=== PATIENT | female | born 1935 | race Caucasian/White ===

== ENCOUNTER 2022-07-16 13:54 | Inpatient (IN) | payer BC, MEDICARE ==
[~2022-07-16] VITALS: Ht 154.9 cm; Wt 97.5 kg
[~2022-07-16 13:54] MED LIST: ALEN70TA3 PO; CYCL30DR OP; HYDR-3326 PO; LEVO150T PO; PANT40TA49 PO; SUCR1TAB PO
[2022-07-16] MEDS ORDERED: IV NORMAL SALINE 1000 ML BAG IV ONE ×2 (14:45→18:30)
[2022-07-16] MEDS ORDERED: DENO60DI SUBCUT (15:10)
[2022-07-16] MEDS ORDERED: LEVO112T5 PO (15:10)
[2022-07-16] MEDS ORDERED: DOCU-141 PO (15:10)
[2022-07-16] MEDS ORDERED: TRAZ-182 PO (15:10)
[2022-07-16] MEDS ORDERED: POLY17PO4 PO (15:10)
[2022-07-16 15:37] LABS: HEMATOCRIT 33.8 % (31.2-41.9); MEAN CORPUSCULAR HEMOGLOBIN 28.9 uug (24.7-32.8); MEAN CORPUSCULAR VOLUME 85.5 fL (75.5-95.3); PLATELET COUNT (AUTO) 307 K/uL (179-408)
[2022-07-16 15:44] LABS: CARBON DIOXIDE 26 mmol/L (21-32); CHLORIDE 104 mmol/L (98-107); GLUCOSE 106 mg/dL (74-106); POTASSIUM 3.5 mmol/L (3.5-5.1); UREA NITROGEN, BLOOD 25 mg/dL (7-18)
[2022-07-16 15:47] LABS: NEUTROPHILS % (MANUAL) 0 % (42-75)
[2022-07-16 15:53] LABS: ALANINE AMINOTRANSFERASE 45 U/L (14-59); ALKALINE PHOSPHATASE 38 U/L (50-136); ASPARTATE AMINOTRANSFERASE 89 U/L (15-37); BILIRUBIN,DIRECT 0.2 mg/dL (0.0-0.2); BILIRUBIN,TOTAL 0.9 mg/dL (0.2-1.0); TOTAL PROTEIN, SERUM 7.3 g/dL (6.4-8.2)
--- NOTE | 2022-07-16 16:48 | NUR ---
Applied Pure wick for urine collection.
--- NOTE | 2022-07-16 16:55 | NUR ---
COVID swab collected and sent to LAB.
[2022-07-16 18:47] LABS: *BILIRUBIN,URIN NEGATIVE (NEGATIVE); *BLOOD, URINE 2+ (NEGATIVE); *CLARITY,URINE CLEAR (CLEAR); *COLOR,URINE YELLOW (YELLOW); *KETONES,URINE NEGATIVE (NEGATIVE); *UROBILINOGEN,URINE 0.2 E.U./dl (NORMAL); LEUKOCYTE ESTERASE ,URINE 2+ (NEGATIVE); NITRITE, URINE POSITIVE (NEGATIVE); PH,URINE 5.5 (5.0-8.0); UGLUCOSE NEGATIVE (NEGATIVE)
--- NOTE | 2022-07-16 19:00 | NUR ---
Received report from Airam GRACIA.
[2022-07-16 20:21] LABS: SQUAMOUS EPITHELIAL CELL,UR FEW /HPF (NONE SEEN); WBC,URINE 20-50 /HPF (0-3)
[2022-07-16] MEDS ORDERED: ONDANSETRON 4 MG/2 ML VIAL IV PRN (20:30)
[2022-07-16] MEDS ORDERED: TEMAZEPAM 15 MG CAPSULE PO PRN (20:30)
--- NOTE | 2022-07-16 21:10 | NUR ---
Report given to Suzanne GRACIA.
[2022-07-16] MEDS ORDERED: POTASSIUM CHLORIDE 0 ML ONE (21:37)
[2022-07-16] MEDS ORDERED: IV 0.9% SODIUM CHLORID+ 20 KCL 0 ML ONE (21:47)
--- NOTE | 2022-07-16 22:25 | NUR ---
Admitted a 87 years old female with Dx of S/P Fall, UTI and Rhabdomyolysis. Patient AAOx4. In no apparent distress. Denies any SOB. Stated she has neuropathic pain on her left leg. Offered pain medication but patient refused at this time. Reposition for comfort. IV site on right FA intact and patent. NSR on tele with HR of 62/min. Patient had a BM and incontinent care provided. Routine admission care done. Plan of care initiated. Safety measure initialed and call light within reached. Patient wishes to be DNR but no documentation for it. Will inform FUNERAL SERVICE MANAGER and CM in AM.
[2022-07-16 22:30] VITALS: BP 103/55
[2022-07-16] MEDS: TRAZODONE 50 MG TABLET PO SCH (22:36)
[2022-07-16] MEDS: DOCUSATE SODIUM 100 MG CAPSULE PO SCH (22:36)
[2022-07-16] MEDS: POTASSIUM CHLORIDE 20 MEQ in IV NS 1000 ML 1,000 ML IV PRN (22:43)
--- NOTE | 2022-07-16 22:45 | NUR ---
Pt. admitted to TELE rm 318, under care of Dr. Frederick Belongs List completed Suzanne RN aware of patient's arrival to unit.
[2022-07-17 04:00] VITALS: BP 115/55
[2022-07-17] MEDS: PANTOPRAZOLE SODIUM 40 MG TABLET.DR PO SCH (06:09)
[2022-07-17] MEDS: LEVOTHYROXINE SODIUM 112 MCG TABLET PO SCH (06:09)
[2022-07-17] MEDS ORDERED: LINA290C PO (06:44)
[2022-07-17] MEDS ORDERED: ACET-1951 PO (06:44)
[2022-07-17] MEDS ORDERED: ACET-2605 PO (06:44)
[2022-07-17] MEDS ORDERED: GABA-532 PO (06:44)
[2022-07-17 07:18] LABS: HEMATOCRIT 30.3 % (31.2-41.9); MEAN CORPUSCULAR HEMOGLOBIN 29.3 uug (24.7-32.8); MEAN CORPUSCULAR VOLUME 84.8 fL (75.5-95.3); PLATELET COUNT (AUTO) 248 K/uL (179-408)
[2022-07-17 08:13] LABS: BILIRUBIN,TOTAL 0.7 mg/dL (0.2-1.0); MAGNESIUM 1.7 mg/dL (1.8-2.4); PHOSPHOROUS 1.7 mg/dL (2.5-4.9); POTASSIUM 3.8 mmol/L (3.5-5.1); TOTAL PROTEIN, SERUM 5.9 g/dL (6.4-8.2)
[2022-07-17] MEDS: DOCUSATE SODIUM 100 MG CAPSULE PO SCH ×2 (08:19→20:02)
[2022-07-17] MEDS: ENOXAPARIN SODIUM 30 MG/0.3 ML DISP.SYRIN SUBCUT SCH (08:21)
[2022-07-17] MEDS ORDERED: PANTOPRAZOLE SODIUM 40 MG TABLET.DR PO SCH (09:00)
[2022-07-17] MEDS ORDERED: CYCLOSPORINE OP SCH (09:00)
--- NOTE | 2022-07-17 09:50 | NUR ---
Patient slept well during the night. In no acute distress. Denies any SOB. NSR on tele with HR of 75/min. IV site on right FA intact and patent. IVF infusing. Seen by PT this AM. Needs attended to and met. Safety measure maintained and call light within reached.
--- NOTE | 2022-07-17 10:25 | NUR ---
WOUND CARE CONSULT: PT PRESENTS WITH LEFT KNEE WOUND AND SOME PINK/RED DISCOLORATION TO RT FOREHEAD, PRESENT ON ADMISSION. RECOMMENDATIONS MADE FOR WOUND CARE AND SKIN PROTECTION. DISCUSSED WITH NURSING STAFF. MD IN AGREEMENT WITH PLAN OF CARE.
[2022-07-17] MEDS ORDERED: REMEDY ESSENTIAL ZINC PASTE 113 GM TOP PRN (10:30)
[2022-07-17] MEDS: CEFTRIAXONE 1 G in IV DEXTROSE 5% 50 ML IV SCH (10:37)
[2022-07-17] MEDS: POTASSIUM CHLORIDE 20 MEQ in IV NS 1000 ML 1,000 ML IV PRN (10:45)
[2022-07-17] MEDS ORDERED: MAGNESIUM OXIDE 400 MG TABLET PO ONE (11:00)
[2022-07-17 11:20] VITALS: BP 125/65
[2022-07-17 11:49] LABS: NEUTROPHILS % (MANUAL) 0 % (42-75)
--- NOTE | 2022-07-17 13:36 | NUR ---
BREN Note: Received consult for pt wishing DNR but no POLST on file. Pt explains she has a completed advance directive at home; however, would need to request for someone to obtain it and deliver it to the hospital. Pt states she would also like to complete a POLST form as she does not have one completed. BREN met with pt bedside and provided copy of blank POLST form. Pt completed and signed POLST form. BREN provided pt's completed form to pt's nurse for MD to sign.
[2022-07-17] MEDS: CLOTRIMAZOLE 1% CREAM 30 GM TUBE TOP SCH ×2 (14:33→16:44)
[2022-07-17] MEDS: NEOMY/BACITRAC/POLYMI OINT 28.35 GM TUBE TOP SCH (14:33)
[2022-07-17 16:04] VITALS: BP 124/46
[2022-07-17] MEDS ORDERED: SODIUM PHOSPHATE MM 15 MMOL in IV NORMAL SALINE 250 ML IV ONE (17:00)
[2022-07-17] MEDS: TRAMADOL HCL 50 MG TABLET PO PRN (17:11)
[2022-07-17] MEDS: TRAZODONE 50 MG TABLET PO SCH (20:02)
[2022-07-17 20:28] VITALS: BP 110/46
[2022-07-17] MEDS: REMEDY ESSENTIAL ZINC PASTE 113 GM TOP SCH (21:44)
[2022-07-18] MEDS: POTASSIUM CHLORIDE 20 MEQ in IV NS 1000 ML 1,000 ML IV PRN ×2 (04:55→22:26)
[2022-07-18 05:29] VITALS: BP 149/50
[2022-07-18] MEDS: LEVOTHYROXINE SODIUM 112 MCG TABLET PO SCH (06:00)
[2022-07-18] MEDS: PANTOPRAZOLE SODIUM 40 MG TABLET.DR PO SCH (06:00)
[2022-07-18 07:40] LABS: HEMATOCRIT 30.3 % (31.2-41.9); MEAN CORPUSCULAR HEMOGLOBIN 28.8 uug (24.7-32.8); MEAN CORPUSCULAR VOLUME 85.8 fL (75.5-95.3); PLATELET COUNT (AUTO) 256 K/uL (179-408)
--- NOTE | 2022-07-18 08:00 | NUR ---
AWAKE ALERT AND ORIENTED X3 PLEASANT AND COOPERATIVE WITH CARE. C/O PAIN LEFT KNEE REQUESTING FOR NEURONTIN. WILL FOLLOW UP WITH HOSPITALIST
[2022-07-18 08:08] LABS: CARBON DIOXIDE 24 mmol/L (21-32); CHLORIDE 106 mmol/L (98-107); CREATININE 0.7 mg/dL (0.6-1.3); GLUCOSE 112 mg/dL (74-106); MAGNESIUM 1.8 mg/dL (1.8-2.4); PHOSPHOROUS 2.2 mg/dL (2.5-4.9); POTASSIUM 3.7 mmol/L (3.5-5.1); UREA NITROGEN, BLOOD 8 mg/dL (7-18)
[2022-07-18] MEDS: CLOTRIMAZOLE 1% CREAM 30 GM TUBE TOP SCH ×2 (08:50→15:19)
[2022-07-18] MEDS: DOCUSATE SODIUM 100 MG CAPSULE PO SCH ×2 (08:50→21:36)
[2022-07-18] MEDS: GABAPENTIN 300 MG CAPSULE PO SCH ×3 (08:50→21:41)
[2022-07-18] MEDS: REMEDY ESSENTIAL ZINC PASTE 113 GM TOP SCH ×2 (08:51→21:37)
[2022-07-18] MEDS: NEOMY/BACITRAC/POLYMI OINT 28.35 GM TUBE TOP SCH (08:51)
[2022-07-18] MEDS: ENOXAPARIN SODIUM 30 MG/0.3 ML DISP.SYRIN SUBCUT SCH (08:52)
[2022-07-18] MEDS ORDERED: Linaclotide (Linzess) 290 MCG) PO SCH (09:00)
[2022-07-18] MEDS: CEFTRIAXONE 1 G in IV DEXTROSE 5% 50 ML IV SCH (10:20)
[2022-07-18 11:38] VITALS: BP 142/52
[2022-07-18] MEDS ORDERED: CHOL400T PO (11:40)
[2022-07-18] MEDS ORDERED: PANT40TA49 PO (11:40)
[2022-07-18] MEDS ORDERED: CALC-343 PO (11:40)
[2022-07-18] MEDS ORDERED: CYCL30DR OP (11:45)
[2022-07-18] MEDS ORDERED: POTASSIUM PHOSPHATE MM 7.5 MMOL in IV NORMAL SALINE 97.5 ML IV ONE (12:00)
[2022-07-18] MEDS: CHOLECALCIFEROL 1,000 UNIT TABLET PO SCH (12:00)
[2022-07-18] MEDS: CALCIUM CARBONATE 500 MG TABLET PO SCH (12:00)
--- NOTE | 2022-07-18 12:00 | NUR ---
SEEN BY DR DOUGHERTY NOTED LABS WITH ORDERS. SR ON MONITOR
--- NOTE | 2022-07-18 15:00 | NUR ---
TEMP 100.1 COOLING MEASURES DONE AFTER TYLENOL PRN. OBSERVED.
[2022-07-18 15:02] VITALS: BP 121/43
[2022-07-18] MEDS: ACETAMINOPHEN 325 MG TABLET PO PRN (15:18)
[2022-07-18 16:57] VITALS: BP 122/56
[2022-07-18] MEDS ORDERED: SODIUM PHOSPHATE MM 15 MMOL in IV NORMAL SALINE 250 ML IV ONE (17:00)
--- NOTE | 2022-07-18 17:07 | NUR ---
LATEST TEMP 98.6 CONTINUE COOLING MEASURES. SR ON MONITOR CONTINUE TELE OBSERVATION
[2022-07-18] MEDS ORDERED: MEROPENEM 1 G in IV NORMAL SALINE 100 ML IV SCH ×2 (18:15→22:00)
[2022-07-18 20:15] VITALS: BP 135/51
[2022-07-18] MEDS ORDERED: TEMAZEPAM 7.5 MG CAPSULE PO PRN (21:00)
[2022-07-18] MEDS: MEROPENEM 1 G in IV NORMAL SALINE 100 ML IV SCH (21:35)
[2022-07-18] MEDS: TRAZODONE 50 MG TABLET PO SCH (21:36)
[2022-07-19 00:13] VITALS: BP 98/50
[2022-07-19] MEDS: MEROPENEM 1 G in IV NORMAL SALINE 100 ML IV SCH ×3 (04:52→20:02)
[2022-07-19 04:54] VITALS: BP 158/62
[2022-07-19] MEDS: GABAPENTIN 300 MG CAPSULE PO SCH ×3 (05:44→21:01)
[2022-07-19 06:02] LABS: HEMATOCRIT 33.5 % (31.2-41.9); MEAN CORPUSCULAR HEMOGLOBIN 28.5 uug (24.7-32.8); MEAN CORPUSCULAR VOLUME 85.2 fL (75.5-95.3); PLATELET COUNT (AUTO) 296 K/uL (179-408)
[2022-07-19] MEDS: PANTOPRAZOLE SODIUM 40 MG TABLET.DR PO SCH (06:08)
[2022-07-19] MEDS: LEVOTHYROXINE SODIUM 112 MCG TABLET PO SCH (06:08)
[2022-07-19 06:22] LABS: BILIRUBIN,TOTAL 0.7 mg/dL (0.2-1.0); PHOSPHOROUS 2.7 mg/dL (2.5-4.9); POTASSIUM 4.1 mmol/L (3.5-5.1)
[2022-07-19] MEDS: DOCUSATE SODIUM 100 MG CAPSULE PO SCH ×2 (08:19→20:44)
[2022-07-19] MEDS: CALCIUM CARBONATE 500 MG TABLET PO SCH (08:19)
[2022-07-19] MEDS: CHOLECALCIFEROL 1,000 UNIT TABLET PO SCH (08:19)
[2022-07-19] MEDS: TRAMADOL HCL 50 MG TABLET PO PRN (08:20)
[2022-07-19] MEDS: ENOXAPARIN SODIUM 30 MG/0.3 ML DISP.SYRIN SUBCUT SCH (08:20)
[2022-07-19] MEDS: CLOTRIMAZOLE 1% CREAM 30 GM TUBE TOP SCH ×2 (08:21→17:21)
[2022-07-19] MEDS: REMEDY ESSENTIAL ZINC PASTE 113 GM TOP SCH ×2 (08:21→20:03)
[2022-07-19] MEDS: NEOMY/BACITRAC/POLYMI OINT 28.35 GM TUBE TOP SCH (08:22)
[2022-07-19] MEDS: PROTEIN SUPPLEMENT (PROSTAT) 30 ML LIQUID PO SCH ×2 (12:01→17:21)
[2022-07-19] MEDS ORDERED: ZOLPIDEM 5 MG TABLET PO PRN (13:00)
[2022-07-19] MEDS: DRONABINOL 2.5 MG CAPSULE PO SCH ×2 (13:24→20:44)
[2022-07-19] MEDS: GLUCERNA SHAKE 237 ML CAN PO SCH (17:21)
[2022-07-19 18:51] VITALS: BP 140/62
[2022-07-19 20:00] VITALS: BP 145/45
[2022-07-19] MEDS: TRAZODONE 50 MG TABLET PO SCH (20:44)
[2022-07-19] MEDS: POTASSIUM CHLORIDE 20 MEQ in IV NS 1000 ML 1,000 ML IV PRN (23:12)
[2022-07-20 04:00] VITALS: BP 139/82
[2022-07-20] MEDS: MEROPENEM 1 G in IV NORMAL SALINE 100 ML IV SCH ×2 (04:42→17:09)
[2022-07-20] MEDS: GABAPENTIN 300 MG CAPSULE PO SCH ×3 (05:54→21:09)
[2022-07-20] MEDS: PANTOPRAZOLE SODIUM 40 MG TABLET.DR PO SCH (06:17)
[2022-07-20] MEDS: LEVOTHYROXINE SODIUM 112 MCG TABLET PO SCH (06:17)
[2022-07-20 06:58] LABS: POTASSIUM 4.6 mmol/L (3.5-5.1)
[2022-07-20] MEDS: GLUCERNA SHAKE 237 ML CAN PO SCH ×2 (08:00→16:11)
[2022-07-20] MEDS: DRONABINOL 2.5 MG CAPSULE PO SCH ×2 (08:00→16:11)
[2022-07-20] MEDS: DOCUSATE SODIUM 100 MG CAPSULE PO SCH ×2 (08:00→20:21)
[2022-07-20] MEDS: CALCIUM CARBONATE 500 MG TABLET PO SCH (08:00)
[2022-07-20] MEDS: CHOLECALCIFEROL 1,000 UNIT TABLET PO SCH (08:00)
[2022-07-20] MEDS: PROTEIN SUPPLEMENT (PROSTAT) 30 ML LIQUID PO SCH ×3 (08:00→16:12)
[2022-07-20] MEDS: ENOXAPARIN SODIUM 30 MG/0.3 ML DISP.SYRIN SUBCUT SCH (08:01)
[2022-07-20] MEDS: CLOTRIMAZOLE 1% CREAM 30 GM TUBE TOP SCH ×2 (09:43→16:12)
[2022-07-20] MEDS: REMEDY ESSENTIAL ZINC PASTE 113 GM TOP SCH ×2 (09:44→20:22)
[2022-07-20] MEDS: NEOMY/BACITRAC/POLYMI OINT 28.35 GM TUBE TOP SCH (09:45)
[2022-07-20 11:32] VITALS: BP 135/49
[2022-07-20 15:51] VITALS: BP 127/42
[2022-07-20] MEDS: ACETAMINOPHEN 325 MG TABLET PO PRN ×2 (16:14→21:10)
[2022-07-20 20:00] VITALS: BP 104/41
[2022-07-20] MEDS: TRAZODONE 50 MG TABLET PO SCH ×2 (20:22→21:00)
[2022-07-21 04:00] VITALS: BP 110/56
[2022-07-21] MEDS: GABAPENTIN 300 MG CAPSULE PO SCH (05:44)
[2022-07-21] MEDS: MEROPENEM 1 G in IV NORMAL SALINE 100 ML IV SCH (05:44)
[2022-07-21] MEDS: PANTOPRAZOLE SODIUM 40 MG TABLET.DR PO SCH (06:08)
[2022-07-21] MEDS: LEVOTHYROXINE SODIUM 112 MCG TABLET PO SCH (06:08)
--- NOTE | 2022-07-21 07:30 | NUR ---
RECEIVED PATIENT COMFORTABLY RESTING IN BED. NO DISTRESS NOTED. RIGHT FA IV INTACT AND PATENT. CONCERNS SPOKEN ABOUT AND MET. PATIENT STATES "I UNDERSTAND THE PLAN." SAFETY AND COMFORT ARE ENFORCED.
[2022-07-21] MEDS: PROTEIN SUPPLEMENT (PROSTAT) 30 ML LIQUID PO SCH ×2 (08:28→11:22)
[2022-07-21] MEDS: GLUCERNA SHAKE 237 ML CAN PO SCH (08:28)
[2022-07-21] MEDS: CHOLECALCIFEROL 1,000 UNIT TABLET PO SCH (08:30)
[2022-07-21] MEDS: DOCUSATE SODIUM 100 MG CAPSULE PO SCH (08:30)
[2022-07-21] MEDS: CALCIUM CARBONATE 500 MG TABLET PO SCH (08:30)
[2022-07-21] MEDS: DRONABINOL 2.5 MG CAPSULE PO SCH (08:44)
[2022-07-21] MEDS: NEOMY/BACITRAC/POLYMI OINT 28.35 GM TUBE TOP SCH (09:09)
[2022-07-21] MEDS: CLOTRIMAZOLE 1% CREAM 30 GM TUBE TOP SCH (09:10)
[2022-07-21] MEDS: REMEDY ESSENTIAL ZINC PASTE 113 GM TOP SCH (09:28)
[2022-07-21] MEDS: ENOXAPARIN SODIUM 30 MG/0.3 ML DISP.SYRIN SUBCUT SCH (09:29)
[2022-07-21 11:33] VITALS: BP 121/40
--- NOTE | 2022-07-21 12:30 | NUR ---
CONTINUING DISCHARGE PLAN OF CARE TO [facility]. ETA 1430.
--- NOTE | 2022-07-21 13:50 | NUR ---
Report given to Sadiq from [facility] for discharge.
--- NOTE | 2022-07-21 16:00 | NUR ---
REPORT WAS GIVEN TO EMT, MARCIAL. PATIENT WAS PICKED UP BY AMBULANCE.
== END 2022-07-21 18:12 | DRG 558 ==
LOC: ER 13:54 → TELE3 18:00 → MEDSURG3 07-19 11:12
PROVIDERS: ADMIT Internal Medicine
DX: M62.82 Rhabdomyolysis (principal); N39.0 Urinary tract infection, site not specified; D68.59 Other primary thrombophilia; E44.0 Moderate protein-calorie malnutrition; Z16.12 Extended spectrum beta lactamase (ESBL) resistance; Z68.41 Body mass index [BMI] 40.0-44.9, adult; B96.20 Unspecified Escherichia coli [E. coli] as the cause of diseases classified elsewhere; D64.9 Anemia, unspecified; Z74.09 Other reduced mobility; E03.9 Hypothyroidism, unspecified; E86.0 Dehydration; E88.09 Other disorders of plasma-protein metabolism, not elsewhere classified; G62.9 Polyneuropathy, unspecified; M81.0 Age-related osteoporosis without current pathological fracture; R62.7 Adult failure to thrive; Z87.11 Personal history of peptic ulcer disease; Z87.440 Personal history of urinary (tract) infections; Z98.84 Bariatric surgery status; Z20.822 Contact with and (suspected) exposure to COVID-19; G89.29 Other chronic pain; R53.1 Weakness; M19.90 Unspecified osteoarthritis, unspecified site; W18.30XA Fall on same level, unspecified, initial encounter; Y93.9 Activity, unspecified; Y92.009 Unspecified place in unspecified non-institutional (private) residence as the place of occurrence of the external cause; Y99.8 Other external cause status; R29.6 Repeated falls; M54.32 Sciatica, left side; S00.81XA Abrasion of other part of head, initial encounter; S80.811A Abrasion, right lower leg, initial encounter
CPT/HCPCS: 36415; 70030-TC; 70450; 71045; 82378; 83550; 83605; 83735; 84100; 84484; 85025; 87040; 87077; 87086; 93005; 93307; A4663; G0378; J0696; J1650; J2185; J3480; J3490; J7040; Q0167

== ENCOUNTER 2022-08-14 11:07 | Inpatient (IN) | payer BC ==
[~2022-08-14] VITALS: Ht 154.9 cm; Wt 80.7 kg
[~2022-08-14 11:07] MED LIST changes: +ACET-1951 PO; +ACET-2605 PO; -ALEN70TA3 PO; +CALC-343 PO; +CHOL400T PO; +DENO60DI SUBCUT; +DOCU-141 PO; +GABA-532 PO; -HYDR-3326 PO; +LEVO112T5 PO; -LEVO150T PO; +LINA290C PO; +POLY17PO4 PO; -SUCR1TAB PO; +TRAZ-182 PO
[2022-08-14 11:42] LABS: HEMATOCRIT 31.2 % (31.2-41.9); MEAN CORPUSCULAR HEMOGLOBIN 28.3 uug (24.7-32.8); MEAN CORPUSCULAR VOLUME 85.1 fL (75.5-95.3); PLATELET COUNT (AUTO) 490 K/uL (179-408)
[2022-08-14 11:50] LABS: CARBON DIOXIDE 36 mmol/L (21-32); CHLORIDE 97 mmol/L (98-107); GLUCOSE 112 mg/dL (74-106); POTASSIUM 3.1 mmol/L (3.5-5.1); UREA NITROGEN, BLOOD 13 mg/dL (7-18)
[2022-08-14 11:58] LABS: ALANINE AMINOTRANSFERASE 13 U/L (14-59); ALKALINE PHOSPHATASE 51 U/L (50-136); ASPARTATE AMINOTRANSFERASE 24 U/L (15-37); BILIRUBIN,DIRECT 0.6 mg/dL (0.0-0.2); BILIRUBIN,TOTAL 1.3 mg/dL (0.2-1.0)
[2022-08-14] MEDS ORDERED: ENOX40DI SQ (12:00)
[2022-08-14] MEDS ORDERED: DRON10CA5 PO (12:00)
[2022-08-14] MEDS ORDERED: DOCU100C36 PO (12:00)
[2022-08-14] MEDS ORDERED: MAGN296S70 PO (12:00)
[2022-08-14] MEDS ORDERED: POTA10CA43 PO (12:00)
[2022-08-14] MEDS ORDERED: ONDA4TAB11 PO (12:00)
[2022-08-14] MEDS ORDERED: CALC1TAB30 PO (12:00)
[2022-08-14] MEDS ORDERED: ASCO500T10 PO (12:00)
[2022-08-14] MEDS ORDERED: NA P133E RC (12:00)
[2022-08-14] MEDS ORDERED: MAGN100T6 PO (12:00)
[2022-08-14] MEDS ORDERED: MAGN400O6 PO (12:00)
[2022-08-14] MEDS ORDERED: MULT-213 PO (12:00)
[2022-08-14] MEDS ORDERED: FURO20TA4 PO (12:00)
[2022-08-14] MEDS ORDERED: BISA10SU61 RC (12:00)
[2022-08-14 12:07] LABS: THYROID STIMULATING HORMONE 0.279 mIU/mL (0.358-3.740)
--- NOTE | 2022-08-14 12:17 | NUR ---
Urine sent to lab.
[2022-08-14] MEDS ORDERED: ACET-2154 PO (12:18)
[2022-08-14] MEDS ORDERED: TEMA7.5C PO (12:18)
[2022-08-14] MEDS ORDERED: TRAM50TA2 PO (12:18)
[2022-08-14 12:26] LABS: *BILIRUBIN,URIN NEGATIVE (NEGATIVE); *BLOOD, URINE NEGATIVE (NEGATIVE); *CLARITY,URINE CLEAR (CLEAR); *COLOR,URINE YELLOW (YELLOW); *KETONES,URINE NEGATIVE (NEGATIVE); *UROBILINOGEN,URINE >=8.0 E.U./dl (NORMAL); LEUKOCYTE ESTERASE ,URINE 1+ (NEGATIVE); NITRITE, URINE POSITIVE (NEGATIVE); UGLUCOSE NEGATIVE (NEGATIVE)
[2022-08-14] MEDS ORDERED: IV NORMAL SALINE 1000 ML BAG IV ONE (12:30)
[2022-08-14] MEDS ORDERED: POTASSIUM CHLORIDE 100 ML ONE (14:10)
[2022-08-14] MEDS ORDERED: CEFTRIAXONE 1 G in IV DEXTROSE 5% 50 ML IV ONE (14:15)
[2022-08-14] MEDS: POTASSIUM CHLORIDE 50 ML IV SCH ×2 (14:22→14:51)
[2022-08-14] MEDS ORDERED: CEFTRIAXONE /D5W 50ML IVPB **ER PYXIS IV ONE (15:13)
[2022-08-14] MEDS ORDERED: REMEDY ESSENTIAL ZINC PASTE 113 GM TP PRN (17:00)
[2022-08-14] MEDS ORDERED: BISACODYL 10 MG SUPP.RECT RC PRN (17:00)
[2022-08-14] MEDS ORDERED: ACETAMINOPHEN 325 MG TABLET PO PRN (17:00)
[2022-08-14] MEDS ORDERED: MAGNESIUM HYDROXIDE 30 ML LIQUID UDC PO PRN (17:00)
[2022-08-14] MEDS ORDERED: MEROPENEM 1 G in IV NORMAL SALINE 100 ML IV SCH (17:00)
--- NOTE | 2022-08-14 18:00 | NUR ---
Attempted to give report to BASIL Campbell.
--- NOTE | 2022-08-14 18:15 | NUR ---
Called again to give report, stated that RN was busy passing medication.
--- NOTE | 2022-08-14 18:30 | NUR ---
Gave report to Shannan
--- NOTE | 2022-08-14 18:45 | NUR ---
Patient transferred to Med Surg unit accompanied by RN.
[2022-08-14 19:05] VITALS: BP 132/52
--- NOTE | 2022-08-14 19:11 | NUR ---
pt arrived from ED @ 1845 - pt has a cell phone, jewelry repairer and a bottle of "Linzes" medication, along with a red bath robe - pt AAOx4 2L NC R.FA IV pt noted to have had a small BM upon transfer from stretcher to bed - pt cleaned, purewick removed, diaper removed, redness noted between inner thighs and buttocks potential "incontinent dermatitis" - pt repositioned, guarded for left leg. scab noted on L.Knee family at bedside - will endorse report to PM shift. Vitals taken
[2022-08-14] MEDS ORDERED: POTASSIUM CHLORIDE 20 MEQ POWDER PACKET PO ONE (20:00)
[2022-08-14] MEDS: TRAZODONE 50 MG TABLET PO SCH (22:21)
[2022-08-14] MEDS: GABAPENTIN 300 MG CAPSULE PO SCH (22:21)
[2022-08-14] MEDS: TEMAZEPAM 7.5 MG CAPSULE PO PRN (22:22)
[2022-08-14] MEDS: MEROPENEM 1 G in IV NORMAL SALINE 100 ML IV SCH (22:29)
[2022-08-14] MEDS: ENOXAPARIN SODIUM 40 MG/0.4 ML DISP.SYRIN SQ SCH (22:30)
[2022-08-14 22:49] LABS: BACTERIA,URINE MODERATE /HPF (NONE SEEN); RBC,URINE 0-3 /HPF (0-3); SQUAMOUS EPITHELIAL CELL,UR FEW /HPF (NONE SEEN)
[2022-08-15] VITALS: BP 118/68
[2022-08-15 05:53] VITALS: BP 110/44
[2022-08-15] MEDS: GABAPENTIN 300 MG CAPSULE PO SCH ×3 (06:19→21:17)
[2022-08-15] MEDS: PANTOPRAZOLE SODIUM 40 MG TABLET.DR PO SCH (06:19)
[2022-08-15 06:35] LABS: HEMATOCRIT 30.4 % (31.2-41.9); MEAN CORPUSCULAR HEMOGLOBIN 28.4 uug (24.7-32.8); MEAN CORPUSCULAR VOLUME 84.9 fL (75.5-95.3); PLATELET COUNT (AUTO) 455 K/uL (179-408)
[2022-08-15 06:52] LABS: CREATININE 0.8 mg/dL (0.6-1.3); PHOSPHOROUS 2.4 mg/dL (2.5-4.9); POTASSIUM 2.9 mmol/L (3.5-5.1)
--- NOTE | 2022-08-15 07:15 | NUR ---
Improving slowly . jud insitu with good output Addendum: 08/15/22 at 0717 by [facility] RN12 RN Wrong patient
--- NOTE | 2022-08-15 07:17 | NUR ---
New admit stable at this time afebrile.
[2022-08-15 08:00] VITALS: BP 136/53
[2022-08-15] MEDS ORDERED: Medication Not On Formulary EA (Linaclotide (Linzess) 290 MCG) PO SCH (09:00)
[2022-08-15] MEDS: CALCIUM CARB/VITAMIN D 500MG-200UNITS TABLET PO SCH (10:14)
[2022-08-15] MEDS: ASCORBIC ACID 500 MG TABLET PO SCH (10:14)
[2022-08-15] MEDS: ONDANSETRON 4 MG/2 ML VIAL IV PRN ×3 (10:15→21:15)
[2022-08-15] MEDS: MULTIVIT, IRON, MIN NO. 8, FA TABLET PO SCH (10:15)
[2022-08-15] MEDS: DOCUSATE SODIUM 100 MG CAPSULE PO SCH (10:15)
[2022-08-15] MEDS: CHOLECALCIFEROL 1,000 UNIT TABLET PO SCH (10:15)
[2022-08-15] MEDS: POTASSIUM CHLORIDE 20 MEQ POWDER PACKET GT SCH (10:16)
[2022-08-15] MEDS: MEROPENEM 1 G in IV NORMAL SALINE 100 ML IV SCH ×2 (10:17→21:14)
[2022-08-15] MEDS ORDERED: NEUTRA PHOS PACKET PO ONE (11:00)
[2022-08-15 12:00] VITALS: BP 135/52
[2022-08-15] MEDS: POTASSIUM CHLORIDE 20 MEQ TAB.PRT.SR PO SCH ×2 (12:45→15:16)
[2022-08-15 16:00] VITALS: BP 128/54
[2022-08-15] MEDS: IV NS 1000 ML 1,000 ML IV PRN (17:27)
[2022-08-15] MEDS: TRAZODONE 50 MG TABLET PO SCH (21:15)
[2022-08-15] MEDS: TEMAZEPAM 7.5 MG CAPSULE PO PRN (21:17)
[2022-08-15] MEDS: TRAMADOL HCL 50 MG TABLET PO PRN (21:17)
[2022-08-15] MEDS: ENOXAPARIN SODIUM 40 MG/0.4 ML DISP.SYRIN SQ SCH (21:20)
[2022-08-16] MEDS: PANTOPRAZOLE SODIUM 40 MG TABLET.DR PO SCH (06:09)
[2022-08-16] MEDS: LEVOTHYROXINE SODIUM 100 MCG TABLET PO SCH (06:09)
[2022-08-16] MEDS: GABAPENTIN 300 MG CAPSULE PO SCH ×3 (06:09→22:10)
[2022-08-16] MEDS: MEROPENEM 1 G in IV NORMAL SALINE 100 ML IV SCH ×2 (07:53→20:32)
--- NOTE | 2022-08-16 07:56 | NUR ---
Slept for long periods. No complaints voiced.
[2022-08-16] MEDS: MULTIVIT, IRON, MIN NO. 8, FA TABLET PO SCH (08:00)
[2022-08-16] MEDS: DOCUSATE SODIUM 100 MG CAPSULE PO SCH (08:00)
[2022-08-16] MEDS: CHOLECALCIFEROL 1,000 UNIT TABLET PO SCH (08:00)
[2022-08-16] MEDS: CALCIUM CARB/VITAMIN D 500MG-200UNITS TABLET PO SCH (08:00)
[2022-08-16] MEDS: LINACLOTIDE 290 MG PO SCH (08:00)
[2022-08-16] MEDS: [UNRECOGNIZED DRUG - OTHER] PO SCH (08:00)
[2022-08-16] MEDS: POTASSIUM CHLORIDE 20 MEQ POWDER PACKET GT SCH (08:00)
[2022-08-16] MEDS: ASCORBIC ACID 500 MG TABLET PO SCH (08:00)
[2022-08-16] MEDS: IV NS 1000 ML 1,000 ML IV PRN (08:29)
[2022-08-16 12:00] VITALS: BP 127/50
[2022-08-16 16:29] VITALS: BP 122/55
[2022-08-16 20:00] VITALS: BP 110/46
[2022-08-16] MEDS: TRAZODONE 50 MG TABLET PO SCH (20:32)
[2022-08-16] MEDS: ENOXAPARIN SODIUM 40 MG/0.4 ML DISP.SYRIN SQ SCH (20:39)
[2022-08-17] MEDS: TEMAZEPAM 7.5 MG CAPSULE PO PRN (00:45)
[2022-08-17 04:00] VITALS: BP 117/53
[2022-08-17] MEDS: GABAPENTIN 300 MG CAPSULE PO SCH ×3 (06:00→22:51)
[2022-08-17] MEDS: LEVOTHYROXINE SODIUM 100 MCG TABLET PO SCH (06:05)
[2022-08-17] MEDS: PANTOPRAZOLE SODIUM 40 MG TABLET.DR PO SCH (06:05)
[2022-08-17 06:32] LABS: HEMATOCRIT 30.4 % (31.2-41.9); MEAN CORPUSCULAR HEMOGLOBIN 28.1 uug (24.7-32.8); MEAN CORPUSCULAR VOLUME 85.5 fL (75.5-95.3); PLATELET COUNT (AUTO) 515 K/uL (179-408)
[2022-08-17 06:39] LABS: CREATININE 0.8 mg/dL (0.6-1.3); POTASSIUM 4.6 mmol/L (3.5-5.1)
[2022-08-17] MEDS: MEROPENEM 1 G in IV NORMAL SALINE 100 ML IV SCH (07:46)
[2022-08-17] MEDS: [UNRECOGNIZED DRUG - OTHER] PO SCH (08:10)
[2022-08-17] MEDS: ASCORBIC ACID 500 MG TABLET PO SCH (08:10)
[2022-08-17] MEDS: DOCUSATE SODIUM 100 MG CAPSULE PO SCH (08:10)
[2022-08-17] MEDS: LINACLOTIDE 290 MG PO SCH (08:10)
[2022-08-17] MEDS: MULTIVIT, IRON, MIN NO. 8, FA TABLET PO SCH (08:10)
[2022-08-17] MEDS: CHOLECALCIFEROL 1,000 UNIT TABLET PO SCH (08:10)
[2022-08-17] MEDS: CALCIUM CARB/VITAMIN D 500MG-200UNITS TABLET PO SCH (08:10)
[2022-08-17] MEDS: TRAMADOL HCL 50 MG TABLET PO PRN (08:24)
[2022-08-17] MEDS ORDERED: POTASSIUM CHLORIDE 20 MEQ TAB.PRT.SR PO SCH (09:00)
[2022-08-17 12:00] VITALS: BP 104/50
[2022-08-17] MEDS ORDERED: NEUTRA PHOS PACKET PO ONE (16:30)
[2022-08-17 16:55] VITALS: BP 102/46
[2022-08-17 20:00] VITALS: BP 105/42
[2022-08-17] MEDS: NITROFURANTOIN/NITROFURAN MAC 100 MG CAPSULE PO SCH (21:02)
[2022-08-17] MEDS: TRAZODONE 50 MG TABLET PO SCH (21:02)
[2022-08-17] MEDS: ENOXAPARIN SODIUM 40 MG/0.4 ML DISP.SYRIN SQ SCH (21:07)
[2022-08-18 04:00] VITALS: BP 110/45
[2022-08-18] MEDS: GABAPENTIN 300 MG CAPSULE PO SCH ×3 (05:57→22:12)
--- NOTE | 2022-08-18 07:21 | NUR ---
Patient AAOX3 with period of confusion.Patient is stable, medication well tolerated. Patient rest throughout shift.
[2022-08-18 07:29] LABS: HEMATOCRIT 31.8 % (31.2-41.9); MEAN CORPUSCULAR HEMOGLOBIN 28.8 uug (24.7-32.8); MEAN CORPUSCULAR VOLUME 84.7 fL (75.5-95.3); PLATELET COUNT (AUTO) 557 K/uL (179-408)
[2022-08-18] MEDS: LEVOTHYROXINE SODIUM 100 MCG TABLET PO SCH (07:42)
[2022-08-18] MEDS: PANTOPRAZOLE SODIUM 40 MG TABLET.DR PO SCH (07:42)
[2022-08-18 07:53] LABS: CREATININE 0.8 mg/dL (0.6-1.3); MAGNESIUM 2.2 mg/dL (1.8-2.4); PHOSPHOROUS 3.2 mg/dL (2.5-4.9); POTASSIUM 5.1 mmol/L (3.5-5.1)
[2022-08-18] MEDS: DOCUSATE SODIUM 100 MG CAPSULE PO SCH (10:19)
[2022-08-18] MEDS: CHOLECALCIFEROL 1,000 UNIT TABLET PO SCH (10:19)
[2022-08-18] MEDS: CALCIUM CARB/VITAMIN D 500MG-200UNITS TABLET PO SCH (10:19)
[2022-08-18] MEDS: ASCORBIC ACID 500 MG TABLET PO SCH (10:19)
[2022-08-18] MEDS: MULTIVIT, IRON, MIN NO. 8, FA TABLET PO SCH (10:19)
[2022-08-18] MEDS: NITROFURANTOIN/NITROFURAN MAC 100 MG CAPSULE PO SCH ×2 (10:19→20:56)
[2022-08-18] MEDS: LINACLOTIDE 290 MG PO SCH (10:22)
[2022-08-18] MEDS: [UNRECOGNIZED DRUG - OTHER] PO SCH (10:22)
[2022-08-18] MEDS ORDERED: NITR100C11 PO (10:36)
[2022-08-18] MEDS ORDERED: LEVO100T10 PO (10:36)
[2022-08-18 11:46] VITALS: BP 102/45
[2022-08-18 15:52] VITALS: BP 121/48
[2022-08-18] MEDS: TRAZODONE 50 MG TABLET PO SCH (20:56)
[2022-08-18] MEDS: ENOXAPARIN SODIUM 40 MG/0.4 ML DISP.SYRIN SQ SCH (20:56)
[2022-08-18] MEDS: TEMAZEPAM 7.5 MG CAPSULE PO PRN (23:16)
[2022-08-19] MEDS: GABAPENTIN 300 MG CAPSULE PO SCH ×3 (06:29→21:01)
[2022-08-19] MEDS: LEVOTHYROXINE SODIUM 100 MCG TABLET PO SCH (06:30)
[2022-08-19] MEDS: PANTOPRAZOLE SODIUM 40 MG TABLET.DR PO SCH (06:30)
--- NOTE | 2022-08-19 07:00 | NUR ---
Patient is AAOX3 with some period of confusion. No sign of respiratory distress observed. Patient had a BM and also she has great appetite. She denies pain, but requested resteril to sleep. Patient slept throughout the night without complication.
[2022-08-19] MEDS: ASCORBIC ACID 500 MG TABLET PO SCH (10:02)
[2022-08-19] MEDS: CHOLECALCIFEROL 1,000 UNIT TABLET PO SCH (10:02)
[2022-08-19] MEDS: LINACLOTIDE 290 MG PO SCH (10:02)
[2022-08-19] MEDS: DOCUSATE SODIUM 100 MG CAPSULE PO SCH (10:02)
[2022-08-19] MEDS: MULTIVIT, IRON, MIN NO. 8, FA TABLET PO SCH (10:02)
[2022-08-19] MEDS: [UNRECOGNIZED DRUG - OTHER] PO SCH (10:02)
[2022-08-19] MEDS: CALCIUM CARB/VITAMIN D 500MG-200UNITS TABLET PO SCH (10:05)
[2022-08-19 11:46] VITALS: BP 108/45
[2022-08-19] MEDS: NUTRISOURCE FIBER 4 GM PACKET PO SCH (15:30)
[2022-08-19 15:56] VITALS: BP 99/48
[2022-08-19] MEDS: ENSURE ENLIVE (VAN) 240 ML LIQUID PO SCH (17:00)
[2022-08-19 20:09] VITALS: BP 115/51
[2022-08-19] MEDS: ENOXAPARIN SODIUM 40 MG/0.4 ML DISP.SYRIN SQ SCH (20:57)
[2022-08-19] MEDS: TRAZODONE 50 MG TABLET PO SCH (21:00)
[2022-08-20] MEDS: TEMAZEPAM 7.5 MG CAPSULE PO PRN (02:23)
[2022-08-20 04:32] VITALS: BP 122/47
[2022-08-20] MEDS: GABAPENTIN 300 MG CAPSULE PO SCH ×2 (05:55→13:36)
[2022-08-20] MEDS: PANTOPRAZOLE SODIUM 40 MG TABLET.DR PO SCH (06:08)
[2022-08-20] MEDS: LEVOTHYROXINE SODIUM 100 MCG TABLET PO SCH (06:08)
--- NOTE | 2022-08-20 06:41 | NUR ---
All needs attended and met. No complaint presented all night. Continue current plan of care.
[2022-08-20] MEDS: MULTIVIT, IRON, MIN NO. 8, FA TABLET PO SCH (08:08)
[2022-08-20] MEDS: CHOLECALCIFEROL 1,000 UNIT TABLET PO SCH (08:08)
[2022-08-20] MEDS: ENSURE ENLIVE (VAN) 240 ML LIQUID PO SCH (08:08)
[2022-08-20] MEDS: DOCUSATE SODIUM 100 MG CAPSULE PO SCH (08:08)
[2022-08-20] MEDS: CALCIUM CARB/VITAMIN D 500MG-200UNITS TABLET PO SCH (08:08)
[2022-08-20] MEDS: ASCORBIC ACID 500 MG TABLET PO SCH (08:08)
[2022-08-20] MEDS: NUTRISOURCE FIBER 4 GM PACKET PO SCH (08:09)
[2022-08-20] MEDS: [UNRECOGNIZED DRUG - OTHER] PO SCH (08:11)
[2022-08-20] MEDS: LINACLOTIDE 290 MG PO SCH (08:11)
[2022-08-20 11:48] VITALS: BP 111/48
[2022-08-20 15:52] VITALS: BP 104/47
--- NOTE | 2022-08-20 17:18 | NUR ---
dc orders received noted and carried out,dc heplock per md orders.dc instruction and rn report given to the [facility] ,pt left the facility via ambulances in stable condition
== END 2022-08-20 17:05 | DRG 690 ==
LOC: ER 11:07 → MEDSURG3 18:12
PROVIDERS: ADMIT Nurse Practitioner Family; ATTEND Nurse Practitioner Acute Care
DX: N39.0 Urinary tract infection, site not specified (principal); D68.59 Other primary thrombophilia; E87.6 Hypokalemia; D64.9 Anemia, unspecified; E03.9 Hypothyroidism, unspecified; G89.4 Chronic pain syndrome; Z87.440 Personal history of urinary (tract) infections; M81.0 Age-related osteoporosis without current pathological fracture; G62.9 Polyneuropathy, unspecified; Z20.822 Contact with and (suspected) exposure to COVID-19; K58.9 Irritable bowel syndrome, unspecified; B96.89 Other specified bacterial agents as the cause of diseases classified elsewhere; E03.8 Other specified hypothyroidism; M54.30 Sciatica, unspecified side
CPT/HCPCS: 36415; 71045; 73560; 73590; 83605; 83735; 84100; 84443; 84484; 85025; 87040; 93005; G0378; J0696; J1650; J2185; J2405; J3480; J7040

== ENCOUNTER 2022-09-19 12:52 | Emergency (ER) | payer BC ==
[~2022-09-19] VITALS: Ht 154.9 cm; Wt 74.8 kg
[~2022-09-19 12:52] MED LIST changes: -ACET-1951 PO; +ACET-2154 PO; -ACET-2605 PO; +ASCO500T10 PO; +BISA10SU61 RC; -CALC-343 PO; +CALC1TAB30 PO; -CYCL30DR OP; -DENO60DI SUBCUT; +DOCU100C36 PO; +DRON10CA5 PO; +ENOX40DI SQ; +FURO20TA4 PO; +LEVO100T10 PO; -LEVO112T5 PO; +MAGN100T6 PO; +MAGN296S70 PO; +MAGN400O6 PO; +MULT-213 PO; +NA P133E RC; +ONDA4TAB11 PO; -POLY17PO4 PO; +POTA10CA43 PO; +TEMA7.5C PO; +TRAM50TA2 PO
--- NOTE | 2022-09-19 15:08 | NUR ---
PT WAS EVALUATED BY DR MCELROY. PT WAS D/C'd TO HOME. D/C INSTRUCTIONS GIVEN TO THE PT BY DR MCELROY.
[2022-09-19 15:14] VITALS: BP 136/81
== END 2022-09-19 15:18 ==
LOC: ER 12:57
DX: K62.89 Other specified diseases of anus and rectum (principal); K59.09 Other constipation; E03.9 Hypothyroidism, unspecified; R29.6 Repeated falls; R26.9 Unspecified abnormalities of gait and mobility; Z79.890 Hormone replacement therapy; Z79.899 Other long term (current) drug therapy
CPT/HCPCS: A4663

== ENCOUNTER 2024-11-21 12:25 | Inpatient (IN) | payer BC ==
[~2024-11-21] VITALS: Ht 154.9 cm; Wt 59.0 kg
[2024-11-21] MEDS: IV NORMAL SALINE 1000 ML BAG IV ONE (12:49)
[2024-11-21] MEDS ORDERED: CEFTRIAXONE /D5W 50ML IVPB **ER PYXIS IV ONE (12:50)
[2024-11-21 12:51] LABS: BASOPHILS % (AUTO) 0.2 % (0.0-2.0); HEMATOCRIT 33.1 % (31.2-41.9); HEMOGLOBIN 11.2 g/dL (10.9-14.3); LYMPHOCYTES # (AUTO) 0.5 K/uL (0.8-4.8); LYMPHOCYTES % (AUTO) 2.8 % (20.5-51.5); MEAN CORPUSCULAR HGB CONC 34 g/dL (32.3-35.6); MEAN CORPUSCULAR VOLUME 85.5 fL (75.5-95.3); MONOCYTES % (AUTO) 5.4 % (0.0-11.0); NEUTROPHILS # (AUTO) 16.8 K/uL (1.8-8.9); NEUTROPHILS % (AUTO) 91.6 % (38.5-71.5); PLATELET COUNT (AUTO) 226 K/uL (179-408); RED BLOOD CELL COUNT(AUTO) 3.87 MIL/uL (3.63-4.92); RED CELL DISTRIBUTION WIDTH 15.4 % (12.3-17.7); WHITE BLOOD COUNT (AUTO) 18.3 K/uL (3.8-11.8)
[2024-11-21 12:54] LABS: DIFFERENTIAL COMMENT 1
[2024-11-21] MEDS: CEFTRIAXONE 1 G in IV DEXTROSE 5% 50 ML IV ONE (12:54)
[2024-11-21 13:04] LABS: CALCIUM 10.3 mg/dL (8.5-10.1); CARBON DIOXIDE 30 mmol/L (21-32); CHLORIDE 104 mmol/L (98-107); CREATININE 2.1 mg/dL (0.6-1.3); GLUCOSE 113 mg/dL (74-106); POTASSIUM 3.9 mmol/L (3.5-5.1); SODIUM SERUM 141 mmol/L (136-145); UREA NITROGEN, BLOOD 29 mg/dL (7-18)
[2024-11-21 13:10] LABS: ABG BASE EXCESS 2.2 mmol/L (-2.0-3.0); ABG HCO3 25.4 mmol/L (21.0-28.0); ABG PCO2 34.9 mmHg (32.0-45.0); ABG PO2 66.2 mmHg (83.0-108.0); ABG SITE RIGHT RADIAL; ABG TOTAL HEMOGLOBIN 13.1 G/dL (12.0-16.0); AaDO2 94.5 mmHg; COHb 0.7 % (0.5-1.5); MetHb 0.3 % (0.0-1.5)
[2024-11-21 13:14] LABS: *BILIRUBIN,URIN NEGATIVE (NEGATIVE); *BLOOD, URINE 2+ (NEGATIVE); *CLARITY,URINE CLOUDY (CLEAR); *COLOR,URINE YELLOW (YELLOW); *KETONES,URINE NEGATIVE (NEGATIVE); *PROTEIN,URINE 2+ (NEGATIVE); *UROBILINOGEN,URINE 0.2 E.U./dl (NORMAL); LEUKOCYTE ESTERASE ,URINE 3+ (NEGATIVE); NITRITE, URINE POSITIVE (NEGATIVE); PH,URINE 5.5 (5.0-8.0); UGLUCOSE NEGATIVE (NEGATIVE)
[2024-11-21] MEDS ORDERED: CALC-1276 PO (13:14)
[2024-11-21] MEDS ORDERED: GABA-536 PO (13:14)
[2024-11-21] MEDS ORDERED: POTA8TAB58 PO (13:14)
[2024-11-21] MEDS ORDERED: METH1TAB69 PO (13:14)
[2024-11-21] MEDS ORDERED: LEVO75TA7 PO (13:14)
[2024-11-21 13:16] LABS: ALANINE AMINOTRANSFERASE 10 U/L (14-59); ALBUMIN 2.6 g/dL (3.4-5.0); ALKALINE PHOSPHATASE 45 U/L (50-136); ASPARTATE AMINOTRANSFERASE 20 U/L (15-37); BILIRUBIN,DIRECT 0.5 mg/dL (0.0-0.2); BILIRUBIN,TOTAL 1.3 mg/dL (0.2-1.0); NT-PRO BNP 5915 pg/mL (0-125); TOTAL PROTEIN, SERUM 6.9 g/dL (6.4-8.2)
[2024-11-21 13:25] LABS: BACTERIA,URINE MANY /HPF (NONE SEEN); SQUAMOUS EPITHELIAL CELL,UR FEW /HPF (NONE SEEN); WBC,URINE TNTC /HPF (0-3)
[2024-11-21] MEDS ORDERED: POLY17PO52 PO (13:25)
[2024-11-21] MEDS ORDERED: CHOL100062 PO (13:25)
[2024-11-21] MEDS ORDERED: ACET-2030 PO (13:25)
[2024-11-21] MEDS ORDERED: TRAZ-257 PO (13:25)
[2024-11-21] MEDS ORDERED: CYAN-51 PO (13:25)
[2024-11-21] MEDS ORDERED: TOPI50TA24 PO (13:25)
[2024-11-21] MEDS ORDERED: MEROPENEM 1GM/NS 100ML IVPB **ER PYXIS ONLY IV ONE (14:04)
[2024-11-21] MEDS: MEROPENEM 1,000 MG in IV NORMAL SALINE 100 ML IV ONE (14:07)
[2024-11-21] MEDS ORDERED: VANCOMYCIN IV 200 ML ONE (15:07)
[2024-11-21] MEDS ORDERED: ACETAMINOPHEN 650 MG SUPP.RECT RC ONE (15:21)
[2024-11-21] MEDS: VANCOMYCIN IV 1,000 MG in IV DEXTROSE 5% 250 ML IV ONE (15:24)
[2024-11-21] MEDS: ACETAMINOPHEN 650 MG SUPP.RECT RC ONE (15:24)
[2024-11-21] MEDS ORDERED: ONDANSETRON 4 MG/2 ML VIAL IV PRN (15:30)
[2024-11-21] MEDS ORDERED: ACETAMINOPHEN 650 MG SUPP.RECT RC PRN (15:30)
[2024-11-21] MEDS ORDERED: ENOXAPARIN SODIUM 30 MG/0.3 ML DISP.SYRIN ONE (17:15)
[2024-11-21] MEDS: ENOXAPARIN SODIUM 30 MG/0.3 ML DISP.SYRIN SQ SCH (17:18)
[2024-11-21 18:22] VITALS: BP 103/36; TEMP 98.6; O2SAT 100
[2024-11-21 19:46] VITALS: BP_SYST 84; BP_SYST 91; BP_DIAS 45; TEMP 98.2; O2SAT 90
[2024-11-21] MEDS: IV NS 1000 ML 1,000 ML IV PRN (20:05)
[2024-11-21] MEDS: TOPIRAMATE 25 MG TABLET PO SCH (21:00)
[2024-11-21] MEDS ORDERED: MEROPENEM 500MG/NS 50ML PB ***ER PYXIS ONLY IV ONE (21:15)
[2024-11-21] MEDS: MEROPENEM 500 MG in IV NORMAL SALINE 50 ML IV SCH (21:44)
[2024-11-21] MEDS ORDERED: MEROPENEM 1 G in IV NORMAL SALINE 100 ML IV SCH (22:00)
[2024-11-22 00:30] VITALS: BP 115/46; TEMP 99.4; O2SAT 94
[2024-11-22 04:39] VITALS: BP 119/45; TEMP 98.6; O2SAT 98
[2024-11-22 06:22] LABS: BASOPHILS % (AUTO) 0.1 % (0.0-2.0); HEMATOCRIT 35.2 % (31.2-41.9); HEMOGLOBIN 11.8 g/dL (10.9-14.3); LYMPHOCYTES # (AUTO) 0.3 K/uL (0.8-4.8); LYMPHOCYTES % (AUTO) 1.5 % (20.5-51.5); MEAN CORPUSCULAR HEMOGLOBIN 28.9 uug (24.7-32.8); MEAN CORPUSCULAR HGB CONC 34 g/dL (32.3-35.6); MEAN CORPUSCULAR VOLUME 86.2 fL (75.5-95.3); MONOCYTES # (AUTO) 0.8 K/uL (0.1-1.30); MONOCYTES % (AUTO) 4.9 % (0.0-11.0); NEUTROPHILS # (AUTO) 15.5 K/uL (1.8-8.9); NEUTROPHILS % (AUTO) 93.5 % (38.5-71.5); PLATELET COUNT (AUTO) 183 K/uL (179-408); RED BLOOD CELL COUNT(AUTO) 4.09 MIL/uL (3.63-4.92); RED CELL DISTRIBUTION WIDTH 15.6 % (12.3-17.7); WHITE BLOOD COUNT (AUTO) 16.5 K/uL (3.8-11.8)
[2024-11-22 06:35] LABS: CARBON DIOXIDE 25 mmol/L (21-32); CHLORIDE 110 mmol/L (98-107); CREATININE 1.6 mg/dL (0.6-1.3); GLUCOSE 103 mg/dL (74-106); MAGNESIUM 1.8 mg/dL (1.8-2.4); PHOSPHOROUS 2.3 mg/dL (2.5-4.9); POTASSIUM 3.3 mmol/L (3.5-5.1); SODIUM SERUM 144 mmol/L (136-145); UREA NITROGEN, BLOOD 29 mg/dL (7-18)
[2024-11-22 06:58] LABS: DIFFERENTIAL COMMENT 1
[2024-11-22 07:38] VITALS: BP 114/47; TEMP 97.8; O2SAT 100
[2024-11-22] MEDS: VANCOMYCIN IV 500 MG in IV DEXTROSE 5% 100 ML IV ONE (09:49)
[2024-11-22] MEDS: PANTOPRAZOLE SODIUM 40 MG VIAL IV SCH (09:49)
[2024-11-22] MEDS: LEVOTHYROXINE SODIUM 75 MCG TABLET PO SCH (09:49)
[2024-11-22] MEDS: MEROPENEM 500 MG in IV NORMAL SALINE 50 ML IV SCH (10:45)
[2024-11-22 11:44] VITALS: BP 136/76; TEMP 97.9; O2SAT 100
[2024-11-22] MEDS: NEUTRA PHOS PACKET PO ONE (12:23)
[2024-11-22 16:00] VITALS: BP 138/65; TEMP 97.2; O2SAT 97
[2024-11-22 19:00] VITALS: BP 128/51; TEMP 98.3; O2SAT 94
[2024-11-22] MEDS: DILTIAZEM HCL 25 MG IV IV ONE (22:27)
[2024-11-23] VITALS (8 sets, daily range): BP systolic 108–146; BP diastolic 60–69; TEMP 97.4–98.5; O2SAT 93–97
[2024-11-23] MEDS ORDERED: AMIODARONE HCL 150 MG/3 ML VIAL IV ONE ×2 (02:06→02:07)
[2024-11-23] MEDS: AMIODARONE HCL IV 150 MG in IV DEXTROSE 5% 100 ML IV ONE (02:29)
[2024-11-23] MEDS: AMIODARONE HCL IV 450 MG in IV DEXTROSE 5% 250 ML IV PRN (02:49)
[2024-11-23] MEDS: LEVOTHYROXINE SODIUM 75 MCG TABLET PO SCH (06:28)
[2024-11-23 07:21] LABS: BASOPHILS % (AUTO) 0.1 % (0.0-2.0); EOSINOPHILS # (AUTO) 0.1 K/uL (0.0-0.7); EOSINOPHILS % (AUTO) 0.4 % (0.0-7.0); HEMATOCRIT 36.8 % (31.2-41.9); HEMOGLOBIN 12.5 g/dL (10.9-14.3); LYMPHOCYTES # (AUTO) 0.3 K/uL (0.8-4.8); LYMPHOCYTES % (AUTO) 2.1 % (20.5-51.5); MEAN CORPUSCULAR HEMOGLOBIN 28.7 uug (24.7-32.8); MEAN CORPUSCULAR HGB CONC 34 g/dL (32.3-35.6); MEAN CORPUSCULAR VOLUME 84.7 fL (75.5-95.3); MONOCYTES # (AUTO) 0.7 K/uL (0.1-1.30); MONOCYTES % (AUTO) 4.6 % (0.0-11.0); NEUTROPHILS # (AUTO) 13.7 K/uL (1.8-8.9); NEUTROPHILS % (AUTO) 92.8 % (38.5-71.5); PLATELET COUNT (AUTO) 174 K/uL (179-408); RED BLOOD CELL COUNT(AUTO) 4.34 MIL/uL (3.63-4.92); RED CELL DISTRIBUTION WIDTH 15.8 % (12.3-17.7); WHITE BLOOD COUNT (AUTO) 14.8 K/uL (3.8-11.8)
[2024-11-23 07:36] LABS: DIFFERENTIAL COMMENT 1
[2024-11-23 07:51] LABS: THYROID STIMULATING HORMONE 0.054 mIU/mL (0.358-3.740)
[2024-11-23 08:04] LABS: ALANINE AMINOTRANSFERASE 21 U/L (14-59); ALBUMIN 1.9 g/dL (3.4-5.0); ALKALINE PHOSPHATASE 51 U/L (50-136); ASPARTATE AMINOTRANSFERASE 22 U/L (15-37); BILIRUBIN,DIRECT 0.3 mg/dL (0.0-0.2); BILIRUBIN,TOTAL 0.8 mg/dL (0.2-1.0); CALCIUM 8.7 mg/dL (8.5-10.1); CARBON DIOXIDE 23 mmol/L (21-32); CHLORIDE 109 mmol/L (98-107); CHOLESTEROL 105 mg/dL (<200); CREATININE 1.2 mg/dL (0.6-1.3); GLUCOSE 128 mg/dL (74-106); HDL CHOLESTEROL 42 mg/dL (40-60); MAGNESIUM 1.9 mg/dL (1.8-2.4); PHOSPHOROUS 1.9 mg/dL (2.5-4.9); POTASSIUM 2.8 mmol/L (3.5-5.1); SODIUM SERUM 144 mmol/L (136-145); TOTAL PROTEIN, SERUM 6.1 g/dL (6.4-8.2); TRIGLYCERIDES 83 MG/DL (30-150); UREA NITROGEN, BLOOD 29 mg/dL (7-18)
[2024-11-23 08:07] LABS: IRON, SERUM 9 ug/dL (50-175)
[2024-11-23] MEDS: POTASSIUM CHLORIDE 20 MEQ POWDER PACKET PO ONE (08:48)
[2024-11-23] MEDS: APIXABAN 2.5 MG TABLET PO SCH (08:49)
[2024-11-23] MEDS: POTASSIUM CHLORIDE 50 ML IV SCH (08:51)
[2024-11-23] MEDS: PROTEIN SUPPLEMENT (PROSTAT) 30 ML LIQUID PO SCH (09:18)
[2024-11-23] MEDS: POTASSIUM PHOSPHATE MM 7.5 MMOL in IV NORMAL SALINE 97.5 ML IV ONE (10:09)
[2024-11-23] MEDS: POTASSIUM CHLORIDE 20 MEQ TAB.PRT.SR PO ONE (12:15)
[2024-11-23] MEDS: VANCOMYCIN HCL 750 MG in IV DEXTROSE 5% 250 ML IV ONE (12:49)
[2024-11-24 05:03] VITALS: BP 106/67; TEMP 98.2; O2SAT 97
[2024-11-24] MEDS: PANTOPRAZOLE SODIUM 40 MG TABLET.DR PO SCH (06:11)
[2024-11-24] MEDS: LEVOTHYROXINE SODIUM 75 MCG TABLET PO SCH (06:11)
[2024-11-24 07:49] VITALS: BP 124/67; TEMP 98.2; O2SAT 96
[2024-11-24] MEDS ORDERED: VANCOMYCIN HCL 750 MG in IV DEXTROSE 5% 250 ML IV ONE (09:00)
[2024-11-24 11:36] VITALS: BP 134/68; TEMP 97.8; O2SAT 98
[2024-11-24 16:05] VITALS: BP 145/68; TEMP 99.1; O2SAT 97
[2024-11-24] MEDS: CEFTRIAXONE 1 G in IV DEXTROSE 5% 50 ML IV SCH (18:04)
[2024-11-24 19:00] VITALS: BP 127/56; TEMP 98.9; O2SAT 96
[2024-11-24 19:59] VITALS: BP 127/56; TEMP 98.9; O2SAT 96
[2024-11-25 05:53] VITALS: BP 123/57; TEMP 98.1; O2SAT 98
[2024-11-25 07:34] LABS: CALCIUM 8.7 mg/dL (8.5-10.1); CARBON DIOXIDE 20 mmol/L (21-32); CHLORIDE 114 mmol/L (98-107); CREATININE 0.9 mg/dL (0.6-1.3); GLUCOSE 93 mg/dL (74-106); POTASSIUM 4.2 mmol/L (3.5-5.1); SODIUM SERUM 142 mmol/L (136-145); UREA NITROGEN, BLOOD 23 mg/dL (7-18); VANCOMYCIN,RANDOM 8.9 ug/mL (20.0-30.0)
[2024-11-25 10:49] VITALS: BP 133/51; TEMP 97.5; O2SAT 97
[2024-11-25 15:17] VITALS: BP 156/67; TEMP 97.8; O2SAT 96
[2024-11-25 16:00] VITALS: O2SAT 96
[2024-11-25 19:35] VITALS: BP 133/70; TEMP 97.9; O2SAT 94
[2024-11-26 01:28] VITALS: O2SAT 98
[2024-11-26 05:26] VITALS: BP 119/56; O2SAT 100
[2024-11-26 06:33] LABS: BASOPHILS % (AUTO) 0.3 % (0.0-2.0); EOSINOPHILS # (AUTO) 0.2 K/uL (0.0-0.7); EOSINOPHILS % (AUTO) 2.2 % (0.0-7.0); HEMATOCRIT 34.2 % (31.2-41.9); HEMOGLOBIN 11.6 g/dL (10.9-14.3); LYMPHOCYTES # (AUTO) 0.6 K/uL (0.8-4.8); LYMPHOCYTES % (AUTO) 6.3 % (20.5-51.5); MEAN CORPUSCULAR HEMOGLOBIN 28.5 uug (24.7-32.8); MEAN CORPUSCULAR HGB CONC 34 g/dL (32.3-35.6); MEAN CORPUSCULAR VOLUME 83.7 fL (75.5-95.3); MONOCYTES # (AUTO) 1.2 K/uL (0.1-1.30); NEUTROPHILS # (AUTO) 6.9 K/uL (1.8-8.9); NEUTROPHILS % (AUTO) 77.2 % (38.5-71.5); PLATELET COUNT (AUTO) 156 K/uL (179-408); RED BLOOD CELL COUNT(AUTO) 4.08 MIL/uL (3.63-4.92); RED CELL DISTRIBUTION WIDTH 15.9 % (12.3-17.7); WHITE BLOOD COUNT (AUTO) 8.9 K/uL (3.8-11.8)
[2024-11-26 06:53] LABS: ALANINE AMINOTRANSFERASE 10 U/L (14-59); ALBUMIN 1.5 g/dL (3.4-5.0); ALKALINE PHOSPHATASE 43 U/L (50-136); ASPARTATE AMINOTRANSFERASE 16 U/L (15-37); BILIRUBIN,TOTAL 0.5 mg/dL (0.2-1.0); CALCIUM 8.6 mg/dL (8.5-10.1); CARBON DIOXIDE 20 mmol/L (21-32); CHLORIDE 114 mmol/L (98-107); CREATININE 0.8 mg/dL (0.6-1.3); GLUCOSE 95 mg/dL (74-106); MAGNESIUM 1.9 mg/dL (1.8-2.4); PHOSPHOROUS 1.1 mg/dL (2.5-4.9); POTASSIUM 3.8 mmol/L (3.5-5.1); SODIUM SERUM 143 mmol/L (136-145); TOTAL PROTEIN, SERUM 5.1 g/dL (6.4-8.2); UREA NITROGEN, BLOOD 18 mg/dL (7-18)
[2024-11-26 06:54] LABS: DIFFERENTIAL COMMENT 1
[2024-11-26 07:10] VITALS: BP 138/63; TEMP 97.8; O2SAT 99
[2024-11-26] MEDS: MULTIVITAMINS,THERAPEUTIC TABLET PO SCH (09:58)
[2024-11-26] MEDS: PROTEIN SUPPLEMENT (PROSTAT) 30 ML LIQUID PO SCH ×2 (09:58→19:19)
[2024-11-26] MEDS: ACIDOPHILUS/BULGARICUS CHEW TAB PO SCH (09:58)
[2024-11-26 11:11] LABS: ANISOCYTOSIS 1+; EOSINOPHILS % (MANUAL) 1 % (0-8); LYMPHOCYTES % (MANUAL) 10 % (20-40); NEUTROPHILS % (MANUAL) 81 % (42-75); PLATELET ESTIMATE DECREASED
[2024-11-26 12:00] VITALS: BP 131/51; TEMP 98.3; O2SAT 97
[2024-11-26 15:54] VITALS: BP 140/57; TEMP 97.8; O2SAT 98
[2024-11-26] MEDS: NEUTRA PHOS PACKET PO ONE (17:06)
[2024-11-26] MEDS ORDERED: AMPICILLIN IV 1 G in IV NORMAL SALINE 50 ML IV SCH (18:00)
[2024-11-26] MEDS: AMPICILLIN IV 1 G in IV NORMAL SALINE 50 ML IV SCH (18:10)
[2024-11-26 19:47] VITALS: BP 138/61; TEMP 97.6; O2SAT 98
[2024-11-26] MEDS ORDERED: CEFTRIAXONE /D5W 50ML IVPB **ER PYXIS IV ONE (22:19)
[2024-11-26] MEDS: CEFTRIAXONE 1 G in IV DEXTROSE 5% 50 ML IV SCH (22:28)
[2024-11-27 02:15] VITALS: O2SAT 98
[2024-11-27 04:27] VITALS: BP 137/53; TEMP 97.8; O2SAT 98
[2024-11-27 06:32] LABS: BASOPHILS % (AUTO) 0.5 % (0.0-2.0); EOSINOPHILS # (AUTO) 0.2 K/uL (0.0-0.7); EOSINOPHILS % (AUTO) 2.6 % (0.0-7.0); HEMATOCRIT 33.9 % (31.2-41.9); HEMOGLOBIN 11.6 g/dL (10.9-14.3); LYMPHOCYTES # (AUTO) 0.8 K/uL (0.8-4.8); MEAN CORPUSCULAR HEMOGLOBIN 28.5 uug (24.7-32.8); MEAN CORPUSCULAR HGB CONC 34 g/dL (32.3-35.6); MEAN CORPUSCULAR VOLUME 83.4 fL (75.5-95.3); MONOCYTES # (AUTO) 1.2 K/uL (0.1-1.30); MONOCYTES % (AUTO) 13.3 % (0.0-11.0); NEUTROPHILS # (AUTO) 6.7 K/uL (1.8-8.9); NEUTROPHILS % (AUTO) 74.6 % (38.5-71.5); PLATELET COUNT (AUTO) 194 K/uL (179-408); RED BLOOD CELL COUNT(AUTO) 4.07 MIL/uL (3.63-4.92); RED CELL DISTRIBUTION WIDTH 15.5 % (12.3-17.7)
[2024-11-27 06:51] LABS: CALCIUM 8.7 mg/dL (8.5-10.1); CARBON DIOXIDE 20 mmol/L (21-32); CHLORIDE 111 mmol/L (98-107); CREATININE 0.8 mg/dL (0.6-1.3); GLUCOSE 94 mg/dL (74-106); MAGNESIUM 1.9 mg/dL (1.8-2.4); PHOSPHOROUS 1.9 mg/dL (2.5-4.9); POTASSIUM 3.7 mmol/L (3.5-5.1); UREA NITROGEN, BLOOD 14 mg/dL (7-18)
[2024-11-27 06:55] LABS: DIFFERENTIAL COMMENT 1
[2024-11-27 08:38] LABS: ANISOCYTOSIS 1+; EOSINOPHILS % (MANUAL) 1 % (0-8); LYMPHOCYTES % (MANUAL) 7 % (20-40); METAMYELOCYTES % 3 % (0-1); MONOCYTES % (MANUAL) 6 % (2-10); MYELOCYTES % 1 % (0-0); NEUTROPHILS % (MANUAL) 82 % (42-75); PLATELET ESTIMATE ADEQUATE
[2024-11-27] MEDS: NEUTRA PHOS PACKET PO ONE (10:30)
[2024-11-27 11:12] VITALS: BP 118/67; TEMP 97.6; O2SAT 98
[2024-11-27 12:11] LABS: SODIUM SERUM 142 mmol/L (136-145)
[2024-11-27 15:00] VITALS: O2SAT 97
[2024-11-27 15:24] VITALS: BP 148/73; TEMP 98.2; O2SAT 97
[2024-11-27] MEDS ORDERED: ACETAMINOPHEN 325 MG TABLET PO PRN (17:00)
[2024-11-27] MEDS: MORPHINE SULFATE 2 MG/1 ML DISP.SYRIN IV PRN (17:01)
[2024-11-27] MEDS: REMEDY ESSENTIAL ZINC PASTE 113 GM TP PRN (17:22)
[2024-11-27 19:47] VITALS: BP 121/54; TEMP 98; O2SAT 98
[2024-11-27] MEDS: CEFTRIAXONE 1 G in IV DEXTROSE 5% 50 ML IV SCH (21:19)
[2024-11-28 02:19] VITALS: O2SAT 98
[2024-11-28 05:25] VITALS: BP 105/50; TEMP 98.1; O2SAT 98
[2024-11-28 06:55] LABS: BASOPHILS % (AUTO) 0.6 % (0.0-2.0); EOSINOPHILS # (AUTO) 0.2 K/uL (0.0-0.7); EOSINOPHILS % (AUTO) 2.5 % (0.0-7.0); HEMATOCRIT 35.9 % (31.2-41.9); HEMOGLOBIN 12.1 g/dL (10.9-14.3); LYMPHOCYTES # (AUTO) 0.9 K/uL (0.8-4.8); LYMPHOCYTES % (AUTO) 11.6 % (20.5-51.5); MEAN CORPUSCULAR HEMOGLOBIN 28.7 uug (24.7-32.8); MEAN CORPUSCULAR HGB CONC 34 g/dL (32.3-35.6); MONOCYTES # (AUTO) 0.7 K/uL (0.1-1.30); MONOCYTES % (AUTO) 8.9 % (0.0-11.0); NEUTROPHILS # (AUTO) 6.2 K/uL (1.8-8.9); NEUTROPHILS % (AUTO) 76.4 % (38.5-71.5); PLATELET COUNT (AUTO) 222 K/uL (179-408); RED BLOOD CELL COUNT(AUTO) 4.23 MIL/uL (3.63-4.92); RED CELL DISTRIBUTION WIDTH 15.6 % (12.3-17.7); WHITE BLOOD COUNT (AUTO) 8.1 K/uL (3.8-11.8)
[2024-11-28 07:11] LABS: DIFFERENTIAL COMMENT 1
[2024-11-28 07:17] LABS: ALANINE AMINOTRANSFERASE < 6 U/L (14-59); ALBUMIN 1.5 g/dL (3.4-5.0); ALKALINE PHOSPHATASE 42 U/L (50-136); ASPARTATE AMINOTRANSFERASE 12 U/L (15-37); BILIRUBIN,TOTAL 0.4 mg/dL (0.2-1.0); CARBON DIOXIDE 20 mmol/L (21-32); CHLORIDE 110 mmol/L (98-107); CREATININE 0.8 mg/dL (0.6-1.3); GLUCOSE 77 mg/dL (74-106); MAGNESIUM 1.9 mg/dL (1.8-2.4); PHOSPHOROUS 2.6 mg/dL (2.5-4.9); POTASSIUM 3.8 mmol/L (3.5-5.1); SODIUM SERUM 141 mmol/L (136-145); TOTAL PROTEIN, SERUM 5.4 g/dL (6.4-8.2); UREA NITROGEN, BLOOD 11 mg/dL (7-18)
[2024-11-28 10:54] VITALS: BP 126/52; TEMP 98.2; O2SAT 96
[2024-11-28 15:07] VITALS: BP 110/56; TEMP 98.4; O2SAT 98
[2024-11-28 20:05] VITALS: BP 144/52; TEMP 97.7; O2SAT 98
[2024-11-28 22:55] VITALS: O2SAT 97
[2024-11-29 06:01] VITALS: BP 147/58; TEMP 98.2
[2024-11-29 07:04] LABS: BASOPHILS # (AUTO) 0.1 K/UL (0.0-0.2); BASOPHILS % (AUTO) 0.7 % (0.0-2.0); EOSINOPHILS # (AUTO) 0.3 K/uL (0.0-0.7); EOSINOPHILS % (AUTO) 2.8 % (0.0-7.0); HEMATOCRIT 34.2 % (31.2-41.9); HEMOGLOBIN 11.8 g/dL (10.9-14.3); LYMPHOCYTES % (AUTO) 9.5 % (20.5-51.5); MEAN CORPUSCULAR HEMOGLOBIN 28.6 uug (24.7-32.8); MEAN CORPUSCULAR HGB CONC 35 g/dL (32.3-35.6); MEAN CORPUSCULAR VOLUME 82.9 fL (75.5-95.3); MONOCYTES # (AUTO) 0.7 K/uL (0.1-1.30); MONOCYTES % (AUTO) 6.8 % (0.0-11.0); NEUTROPHILS % (AUTO) 80.2 % (38.5-71.5); PLATELET COUNT (AUTO) 297 K/uL (179-408); RED BLOOD CELL COUNT(AUTO) 4.13 MIL/uL (3.63-4.92); RED CELL DISTRIBUTION WIDTH 15.1 % (12.3-17.7)
[2024-11-29 07:16] LABS: ALANINE AMINOTRANSFERASE 8 U/L (14-59); ALBUMIN 1.5 g/dL (3.4-5.0); ALKALINE PHOSPHATASE 42 U/L (50-136); ASPARTATE AMINOTRANSFERASE 13 U/L (15-37); BILIRUBIN,DIRECT 0.2 mg/dL (0.0-0.2); BILIRUBIN,TOTAL 0.3 mg/dL (0.2-1.0); CALCIUM 9.2 mg/dL (8.5-10.1); CARBON DIOXIDE 21 mmol/L (21-32); CHLORIDE 109 mmol/L (98-107); CREATININE 0.8 mg/dL (0.6-1.3); GLUCOSE 76 mg/dL (74-106); MAGNESIUM 1.9 mg/dL (1.8-2.4); POTASSIUM 3.6 mmol/L (3.5-5.1); SODIUM SERUM 140 mmol/L (136-145); TOTAL PROTEIN, SERUM 5.5 g/dL (6.4-8.2); UREA NITROGEN, BLOOD 9 mg/dL (7-18)
[2024-11-29 07:19] LABS: DIFFERENTIAL COMMENT 1
[2024-11-29 10:56] LABS: EOSINOPHILS % (MANUAL) 3 % (0-8); LYMPHOCYTES % (MANUAL) 10 % (20-40); MONOCYTES % (MANUAL) 7 % (2-10); NEUTROPHILS % (MANUAL) 80 % (42-75)
[2024-11-29 10:57] LABS: PLATELET ESTIMATE ADEQUATE
[2024-11-29 11:06] VITALS: BP 136/55; TEMP 98.4; O2SAT 99
[2024-11-29 15:17] VITALS: BP 122/50; TEMP 97.6; O2SAT 97
[2024-11-29] MEDS ORDERED: IOHEXOL 300MG/ML 100 ML INFUS..BTL ONE (17:23)
[2024-11-29] MEDS ORDERED: SWABABLE VALVE TRANSFER SET EA MC ONE (17:23)
[2024-11-29] MEDS ORDERED: IV NORMAL SALINE 250 ML IV ONE (17:25)
[2024-11-29 19:10] VITALS: BP 125/71; TEMP 98.2; O2SAT 99
[2024-11-30] MEDS: DICYCLOMINE HCL 10 MG CAPSULE PO SCH (00:17)
[2024-11-30 01:43] VITALS: O2SAT 98
[2024-11-30 05:48] VITALS: BP 129/65; TEMP 98.2; O2SAT 97
[2024-11-30 07:03] LABS: BASOPHILS # (AUTO) 0.1 K/UL (0.0-0.2); BASOPHILS % (AUTO) 0.6 % (0.0-2.0); EOSINOPHILS # (AUTO) 0.1 K/uL (0.0-0.7); EOSINOPHILS % (AUTO) 1.5 % (0.0-7.0); HEMATOCRIT 31.3 % (31.2-41.9); HEMOGLOBIN 10.6 g/dL (10.9-14.3); LYMPHOCYTES # (AUTO) 1.1 K/uL (0.8-4.8); LYMPHOCYTES % (AUTO) 11.8 % (20.5-51.5); MEAN CORPUSCULAR HEMOGLOBIN 28.3 uug (24.7-32.8); MEAN CORPUSCULAR HGB CONC 34 g/dL (32.3-35.6); MEAN CORPUSCULAR VOLUME 83.6 fL (75.5-95.3); MONOCYTES # (AUTO) 0.6 K/uL (0.1-1.30); NEUTROPHILS # (AUTO) 7.4 K/uL (1.8-8.9); NEUTROPHILS % (AUTO) 80.1 % (38.5-71.5); PLATELET COUNT (AUTO) 331 K/uL (179-408); RED BLOOD CELL COUNT(AUTO) 3.74 MIL/uL (3.63-4.92); RED CELL DISTRIBUTION WIDTH 15.5 % (12.3-17.7); WHITE BLOOD COUNT (AUTO) 9.3 K/uL (3.8-11.8)
[2024-11-30 07:12] LABS: DIFFERENTIAL COMMENT 1
[2024-11-30 07:16] LABS: CALCIUM 9.6 mg/dL (8.5-10.1); CARBON DIOXIDE 23 mmol/L (21-32); CHLORIDE 112 mmol/L (98-107); CREATININE 0.9 mg/dL (0.6-1.3); GLUCOSE 84 mg/dL (74-106); LIPASE 86 U/L (16-77); PHOSPHOROUS 3.3 mg/dL (2.5-4.9); POTASSIUM 3.8 mmol/L (3.5-5.1); SODIUM SERUM 142 mmol/L (136-145); UREA NITROGEN, BLOOD 9 mg/dL (7-18)
[2024-11-30 15:55] VITALS: BP 121/43; TEMP 97.8; O2SAT 97
[2024-11-30 15:59] VITALS: O2SAT 98
[2024-11-30 19:12] VITALS: BP 112/45; TEMP 98.2; O2SAT 96
[2024-12-01 05:05] VITALS: BP 119/50; TEMP 98; O2SAT 94
[2024-12-01 06:20] LABS: BASOPHILS # (AUTO) 0.1 K/UL (0.0-0.2); BASOPHILS % (AUTO) 0.8 % (0.0-2.0); EOSINOPHILS # (AUTO) 0.1 K/uL (0.0-0.7); EOSINOPHILS % (AUTO) 1.5 % (0.0-7.0); HEMATOCRIT 33.3 % (31.2-41.9); HEMOGLOBIN 11.3 g/dL (10.9-14.3); LYMPHOCYTES # (AUTO) 1.3 K/uL (0.8-4.8); LYMPHOCYTES % (AUTO) 13.3 % (20.5-51.5); MEAN CORPUSCULAR HEMOGLOBIN 28.2 uug (24.7-32.8); MEAN CORPUSCULAR HGB CONC 34 g/dL (32.3-35.6); MEAN CORPUSCULAR VOLUME 83.2 fL (75.5-95.3); MONOCYTES # (AUTO) 0.5 K/uL (0.1-1.30); MONOCYTES % (AUTO) 5.7 % (0.0-11.0); NEUTROPHILS # (AUTO) 7.5 K/uL (1.8-8.9); NEUTROPHILS % (AUTO) 78.7 % (38.5-71.5); PLATELET COUNT (AUTO) 416 K/uL (179-408); WHITE BLOOD COUNT (AUTO) 9.6 K/uL (3.8-11.8)
[2024-12-01 06:34] LABS: CALCIUM 9.8 mg/dL (8.5-10.1); CARBON DIOXIDE 25 mmol/L (21-32); CHLORIDE 112 mmol/L (98-107); CREATININE 0.9 mg/dL (0.6-1.3); GLUCOSE 85 mg/dL (74-106); POTASSIUM 3.3 mmol/L (3.5-5.1); SODIUM SERUM 144 mmol/L (136-145); UREA NITROGEN, BLOOD 15 mg/dL (7-18)
[2024-12-01 06:37] LABS: DIFFERENTIAL COMMENT 1
[2024-12-01 12:00] VITALS: BP 118/45; TEMP 97.2; O2SAT 97
[2024-12-01] MEDS: POTASSIUM CHLORIDE 20 MEQ TAB.PRT.SR PO ONE (15:07)
[2024-12-01 16:00] VITALS: BP 109/41; TEMP 97.4; O2SAT 97
[2024-12-01 19:00] VITALS: BP 105/33; TEMP 98; O2SAT 97
[2024-12-01 20:55] VITALS: O2SAT 98
[2024-12-02 05:53] VITALS: BP 109/43; TEMP 97.7; O2SAT 98
[2024-12-02 10:57] VITALS: BP 98/39; TEMP 98.7; O2SAT 97
[2024-12-02 11:04] VITALS: O2SAT 98
[2024-12-02 15:24] VITALS: BP 103/54; TEMP 98.2; O2SAT 98
[2024-12-02 19:05] VITALS: BP 112/47; TEMP 98.2; O2SAT 97
[2024-12-02 20:24] VITALS: O2SAT 97
[2024-12-03 05:57] VITALS: BP 141/57; TEMP 97.9; O2SAT 98
[2024-12-03 11:35] VITALS: BP 112/36; TEMP 97.7; O2SAT 98
[2024-12-03 15:38] VITALS: BP 122/45; TEMP 97.8; O2SAT 100
[2024-12-03 19:25] VITALS: BP 120/50; TEMP 98.7; O2SAT 95
[2024-12-04 06:03] VITALS: BP 136/49; TEMP 98.7; O2SAT 98
[2024-12-04 07:45] VITALS: BP 108/41; TEMP 98.7; O2SAT 99
[2024-12-04 11:36] VITALS: BP 110/38; TEMP 97.4; O2SAT 98
[2024-12-04 15:39] VITALS: BP 104/36; TEMP 97.9; O2SAT 97
[2024-12-04 22:47] VITALS: BP 102/62; TEMP 98.2; O2SAT 97
[2024-12-05 06:46] LABS: BASOPHILS # (AUTO) 0.1 K/UL (0.0-0.2); BASOPHILS % (AUTO) 1.2 % (0.0-2.0); EOSINOPHILS # (AUTO) 0.2 K/uL (0.0-0.7); EOSINOPHILS % (AUTO) 2.4 % (0.0-7.0); HEMATOCRIT 36.1 % (31.2-41.9); HEMOGLOBIN 12.1 g/dL (10.9-14.3); LYMPHOCYTES # (AUTO) 1.1 K/uL (0.8-4.8); LYMPHOCYTES % (AUTO) 12.4 % (20.5-51.5); MEAN CORPUSCULAR HGB CONC 34 g/dL (32.3-35.6); MEAN CORPUSCULAR VOLUME 83.4 fL (75.5-95.3); MONOCYTES # (AUTO) 0.6 K/uL (0.1-1.30); MONOCYTES % (AUTO) 7.5 % (0.0-11.0); NEUTROPHILS # (AUTO) 6.5 K/uL (1.8-8.9); NEUTROPHILS % (AUTO) 76.5 % (38.5-71.5); PLATELET COUNT (AUTO) 618 K/uL (179-408); RED BLOOD CELL COUNT(AUTO) 4.32 MIL/uL (3.63-4.92); RED CELL DISTRIBUTION WIDTH 15.7 % (12.3-17.7); WHITE BLOOD COUNT (AUTO) 8.5 K/uL (3.8-11.8)
[2024-12-05 06:53] LABS: DIFFERENTIAL COMMENT 1
[2024-12-05 07:03] LABS: ALANINE AMINOTRANSFERASE 14 U/L (14-59); ALBUMIN 2.1 g/dL (3.4-5.0); ALKALINE PHOSPHATASE 48 U/L (50-136); ASPARTATE AMINOTRANSFERASE 18 U/L (15-37); BILIRUBIN,TOTAL 0.5 mg/dL (0.2-1.0); CALCIUM 9.9 mg/dL (8.5-10.1); CARBON DIOXIDE 25 mmol/L (21-32); CHLORIDE 107 mmol/L (98-107); CREATININE 1.1 mg/dL (0.6-1.3); GLUCOSE 85 mg/dL (74-106); PHOSPHOROUS 2.7 mg/dL (2.5-4.9); POTASSIUM 3.2 mmol/L (3.5-5.1); SODIUM SERUM 141 mmol/L (136-145); TOTAL PROTEIN, SERUM 6.4 g/dL (6.4-8.2); UREA NITROGEN, BLOOD 12 mg/dL (7-18)
[2024-12-05 08:18] VITALS: BP 134/59; TEMP 98
[2024-12-05] MEDS: POTASSIUM CHLORIDE 20 MEQ TAB.PRT.SR PO SCH (10:07)
[2024-12-05 11:31] VITALS: BP 118/57; TEMP 98.2; O2SAT 98
[2024-12-05 15:38] VITALS: BP 108/52; TEMP 97.9; O2SAT 97
[2024-12-05 20:33] VITALS: BP 112/45; TEMP 98; O2SAT 97
[2024-12-06 05:57] VITALS: BP 100/41; TEMP 97.9; O2SAT 97
[2024-12-06 08:15] VITALS: BP 119/50; TEMP 97.6; O2SAT 98
[2024-12-06 11:26] VITALS: BP 85/38; TEMP 97.6; O2SAT 96
[2024-12-06] MEDS: IV NORMAL SALINE 500 ML BAG IV ONE (11:31)
[2024-12-06 12:47] LABS: BASOPHILS # (AUTO) 0.1 K/UL (0.0-0.2); BASOPHILS % (AUTO) 1.5 % (0.0-2.0); EOSINOPHILS # (AUTO) 0.2 K/uL (0.0-0.7); EOSINOPHILS % (AUTO) 2.5 % (0.0-7.0); HEMATOCRIT 35.1 % (31.2-41.9); HEMOGLOBIN 11.6 g/dL (10.9-14.3); LYMPHOCYTES % (AUTO) 10.8 % (20.5-51.5); MEAN CORPUSCULAR HEMOGLOBIN 28.3 uug (24.7-32.8); MEAN CORPUSCULAR HGB CONC 33 g/dL (32.3-35.6); MEAN CORPUSCULAR VOLUME 85.2 fL (75.5-95.3); MONOCYTES # (AUTO) 0.6 K/uL (0.1-1.30); MONOCYTES % (AUTO) 7.1 % (0.0-11.0); NEUTROPHILS % (AUTO) 78.1 % (38.5-71.5); PLATELET COUNT (AUTO) 554 K/uL (179-408); RED BLOOD CELL COUNT(AUTO) 4.12 MIL/uL (3.63-4.92); RED CELL DISTRIBUTION WIDTH 16.3 % (12.3-17.7)
[2024-12-06 12:52] LABS: DIFFERENTIAL COMMENT 1
[2024-12-06 12:59] LABS: CALCIUM 9.9 mg/dL (8.5-10.1); CARBON DIOXIDE 26 mmol/L (21-32); CHLORIDE 109 mmol/L (98-107); CREATININE 1.1 mg/dL (0.6-1.3); GLUCOSE 108 mg/dL (74-106); POTASSIUM 4.5 mmol/L (3.5-5.1); SODIUM SERUM 140 mmol/L (136-145); UREA NITROGEN, BLOOD 13 mg/dL (7-18)
[2024-12-06 13:01] VITALS: BP 103/43
[2024-12-06 15:47] VITALS: BP 97/43; TEMP 97.5; O2SAT 96
[2024-12-06] MEDS: IV NS 1000 ML 1,000 ML IV PRN (18:00)
[2024-12-06 19:25] VITALS: BP 116/47; TEMP 98.1; O2SAT 99
[2024-12-07 06:12] VITALS: BP 134/51; TEMP 97.5; O2SAT 95
[2024-12-07 07:09] LABS: CALCIUM 9.5 mg/dL (8.5-10.1); CARBON DIOXIDE 25 mmol/L (21-32); CHLORIDE 110 mmol/L (98-107); GLUCOSE 83 mg/dL (74-106); POTASSIUM 3.6 mmol/L (3.5-5.1); SODIUM SERUM 141 mmol/L (136-145); UREA NITROGEN, BLOOD 11 mg/dL (7-18)
[2024-12-07 11:35] VITALS: BP 132/49; TEMP 97.7; O2SAT 99
[2024-12-07 12:55] VITALS: BP 132/49; TEMP 97.7; O2SAT 99
[2024-12-07 16:00] VITALS: BP 107/54; TEMP 97.6; O2SAT 100
[2024-12-07] MEDS: CLOTRIMAZOLE 1% CREAM 30 GM TUBE TOP SCH (16:18)
[2024-12-07] MEDS ORDERED: APIX2.5T PO (18:21)
[2024-12-07] MEDS ORDERED: PROT30LI PO (18:21)
[2024-12-07] MEDS ORDERED: CLOT30CR24 TOP (18:21)
[2024-12-07] MEDS ORDERED: MULT-24 PO (18:21)
[2024-12-07] MEDS ORDERED: DICY10CA21 PO (18:21)
[2024-12-07] MEDS ORDERED: TOPI25TA PO (18:21)
[2024-12-07] MEDS ORDERED: ACID1TAB4 PO (18:21)
[2024-12-07] MEDS ORDERED: LEVO75TA7 PO (18:21)
[2024-12-07] MEDS ORDERED: PANT40TA49 PO (18:21)
== END 2024-12-07 20:10 | DRG 871 ==
LOC: ER 12:25 → MS IN 15:37 → TELE3 17:41 → TELE-TD3 11-23 02:30 → MEDSURG3 11-24 08:48
DX: A41.51 Sepsis due to Escherichia coli [E. coli] (principal); E43 Unspecified severe protein-calorie malnutrition; J69.0 Pneumonitis due to inhalation of food and vomit; J15.69 Pneumonia due to other Gram-negative bacteria; N17.0 Acute kidney failure with tubular necrosis; G92.8 Other toxic encephalopathy; N39.0 Urinary tract infection, site not specified; D68.59 Other primary thrombophilia; E87.20 Acidosis, unspecified; R64 Cachexia; A09 Infectious gastroenteritis and colitis, unspecified; I13.0 Hypertensive heart and chronic kidney disease with heart failure and stage 1 through stage 4 chronic kidney disease, or unspecified chronic kidney disease; A41.50 Gram-negative sepsis, unspecified; R65.20 Severe sepsis without septic shock; Z66 Do not resuscitate; R62.7 Adult failure to thrive; Z68.24 Body mass index [BMI] 24.0-24.9, adult; Z74.09 Other reduced mobility; E88.09 Other disorders of plasma-protein metabolism, not elsewhere classified; G89.4 Chronic pain syndrome; K58.9 Irritable bowel syndrome, unspecified; I48.0 Paroxysmal atrial fibrillation; E03.9 Hypothyroidism, unspecified; E86.0 Dehydration; Z90.49 Acquired absence of other specified parts of digestive tract; Z91.81 History of falling; Z98.84 Bariatric surgery status; M81.0 Age-related osteoporosis without current pathological fracture; I50.9 Heart failure, unspecified; F03.90 Unspecified dementia, unspecified severity, without behavioral disturbance, psychotic disturbance, mood disturbance, and anxiety; E87.6 Hypokalemia; G62.9 Polyneuropathy, unspecified; M54.42 Lumbago with sciatica, left side; M54.41 Lumbago with sciatica, right side; I35.8 Other nonrheumatic aortic valve disorders; E05.90 Thyrotoxicosis, unspecified without thyrotoxic crisis or storm; Z79.890 Hormone replacement therapy; N18.9 Chronic kidney disease, unspecified; R29.6 Repeated falls; Z87.440 Personal history of urinary (tract) infections; Z68.30 Body mass index [BMI] 30.0-30.9, adult
CPT/HCPCS: 36415; 36600; 71045; 74018; 82378; 82803; 83550; 83605; 83690; 83735; 84100; 84443; 84484; 85025; 85730; 87040; 87077; 87086; 93005; 93307; 97535-GO-CO; A4606; A4663; A6213; C1758; G0378; J0282; J0290; J0696; J1650; J2185; J2270; J2470; J3370; J3480; J3490; J7040; J7050; Q9967